=== PATIENT | female | born 1990 | race Caucasian/White ===

== ENCOUNTER → 2024-05-21 08:16 | Outpatient (REF) | payer BC, SELFPAY | LOC: HWRAD 08:16 | PROVIDERS: ATTENDING PHYSICIAN Nurse Practitioner Obstetrics & Gynecology; FAMILY PHYSICIAN Family Medicine | DX: N93.9 Abnormal uterine and vaginal bleeding, unspecified (principal) | CPT/HCPCS: 76830; 76856 ==